=== PATIENT | male | born 1990 | race African-American/Black ===

== ENCOUNTER 2020-11-27 00:56 | Emergency (ER) | payer OTHER ==
[~2020-11-27] VITALS: Ht 167.6 cm; Wt 56.7 kg
--- NOTE | ~2020-11-27 | EMS ---
[address] [address] EMS Patient Care Report Name: ROLANDO GUTIERREZ Room #: DEP GERALDINE Chanel#: [id number] Admission: 11/27/20 Attend Phys: Discharge: 11/27/20 Date of : [birth year] Report #: [id number] THIS REPORT FOR: //name// Report Transmitted: 11/27/2020 14:37 EMS Care Summary [place], [place]/[facility] Incident [id number] @ 11/27/2020 00:18 Incident Location [address] [place] [address] Patient ROLANDO GUTIERREZ Male, 30 Years 1990 Patient Address [address] [place] [address] Patient History None Reported, Patient Allergies No known allergies, Patient Medications Naproxen, Hydromorphone, Cyclobenzaprine, Chief Complaint Vomiting Disposition Transported No Lights/[place] Dispatch Reason Sick Person Transported To [facility] Narrative M41 RESPONDED TO A RESIDENCE ON A BACK PAIN/VOMITING. 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 PATIENT STATES PAIN IS 10/10. PATIENT STATES IT FLARED UP ABOUT 20 MINUTES PRIOR TO EMS ARRIVAL. [address] [address] EMS Patient Care Report Name: ROLANDO GUTIERREZ Room #: DEP ER Rodrigo#: [id number] Admission: 11/27/20 Attend Phys: Discharge: 11/27/20 Date of : [birth year] Report #: [id number] UPON EMS ARRIVAL PATIENT IS FOUND WALKING OUT OF RESIDENCE. WITH P42 CREW. PATIENT WALKS TO COT AND IS BUCKLED IN WITH SEAT BELTS. 2 SETS OF VITALS OBTAINED EN ROUTE. NO SIGNIFICICANT CHANGES. PATIENT TRANSFERRED SELF FROM COT TO HOSPITAL BED. REPORT GIVEN TO RN. RN SIGNATURE OBTAINED. Initial Vitals @00:37P: 60,R: 16,BP: 115/70,Pain: 10/10,GCS: 15,SpO2: 100,Revised Trauma: 12, @00:42P: 55,R: 16,BP: 109/77,Pain: 10/10,GCS: 15,SpO2: 100,Revised Trauma: 12, Assessments @00:32MENTAL:Person Oriented,Time Oriented,Event Oriented,Place Oriented,SKIN:HEENT:Head/Face: No Abnormalities,Neck/Airway: No Abnormalities,LUNG SOUNDS:General: No Abnormalities,ABDOMEN:General: No Abnormalities,PELVIS//GI:No Abnormalities,EXTREMITIES:Left Arm: No Abnormalities,Right Arm: No Abnormalities,Left Leg: No Abnormalities,Right Leg: No Abnormalities,PULSE:NEURO:No Abnormalities, Impression Vomiting Procedures @00:32ALS AssessmentResponse: UnchangedSucceeded Timeline 00:16,Call Received 00:16,Dispatch Notified 00:18,Dispatched 00:20,En Route 00:31,On Scene 00:32,At Patient 00:32,ALS Assessment,Response: UnchangedSucceeded, 00:36,Depart Scene 00:37,BP: 115/70 M,PULSE: 60,RR: 16 R,SPO2: 100 Ox,ETCO2: ,BG: ,PAIN: 10,GCS: 15, 00:42,BP: 109/77 M,PULSE: 55,RR: 16 R,SPO2: 100 Ox,ETCO2: ,BG: ,PAIN: 10,GCS: 15, 00:52,At Destination 01:08,Call Closed Disclaimer v1.1 Copyright 2020 [employer] This EMS Care Summary contains data elements from the applicable legal record (which may be displayed differently). It is designed to provide pertinent information for the following purposes: continuity of care, clinical quality, and state data reporting. The complete legal record is available to ED staff and administrators of the receiving hospital in [employer]'s Patient Tracker. All data [address] [address] EMS Patient Care Report Name: ROLANDO GUTIERREZ Room #: RONAN Chanel#: [id number] Admission: 11/27/20 Attend Phys: Discharge: 11/27/20 Date of : [birth year] Report #: [id number] is provided "as is."
[2020-11-27] MEDS ORDERED: NAPROXEN500 MG PO (01:03)
[2020-11-27] MEDS ORDERED: FLEXERIL PO ×2 (01:03→02:23)
[2020-11-27] MEDS ORDERED: DILAUDID2 MG PO (01:04)
[2020-11-27 01:32] LABS: ABSOLUTE NEUTROPHILS 6.3 thou/uL (1.4-8.2); BASOPHILS 0.9 % (0.0-2.0); EOSINOPHILS 1.6 % (0.0-3.0); HEMOGLOBIN 14.8 gm/dL (14.0-18.0); LYMPHOCYTES 22.8 % (24.0-44.0); MCH 31.2 pg (26.0-34.0); MCHC 33.6 g/dL (28.0-37.0); MONOCYTES 10.2 % (1.0-8.0); PLATELET COUNT 162 thou/uL (150-400); POLYS 64.5 % (36.0-66.0); RBC 4.74 mil/uL (4.50-6.00); WBC 9.7 thou/uL (4.0-11.0)
[2020-11-27 01:39] LABS: CALCIUM 9.3 mg/dL (8.5-10.1); POTASSIUM 3.6 mmol/L (3.5-5.1)
[2020-11-27 01:45] LABS: ALBUMIN 4.6 g/dL (3.4-5.0); TOTAL BILIRUBIN 0.5 mg/dL (0.2-1.0); TOTAL PROTEIN 7.5 g/dL (6.4-8.2)
[2020-11-27 02:06] LABS: URINE BILIRUBIN 1+ (Negative); URINE BLOOD 1+ (Negative); URINE CLARITY CLEAR; URINE COLOR YELLOW; URINE GLUCOSE-RANDOM* NEGATIVE (Negative); URINE KETONES TRACE (Negative); URINE LEUKOCYTES-REFLEX NEGATIVE (Negative); URINE NITRITE-REFLEX NEGATIVE (Negative); URINE PROTEIN (DIPSTICK) 2+ (Negative); URINE SPECIFIC GRAVITY >= 1.030 (1.005-1.035)
[2020-11-27 02:14] LABS: SQUAMOUS 4-10 Moderate /LPF (0-3)
[2020-11-27 02:15] LABS: BACTERIA-REFLEX 1-9 Few /HPF (None Seen); CASTS None Seen /LPF (None Seen); CRYSTALS None Seen /LPF (None Seen); MUCUS >6 Heavy strn/LPF (None Seen); URINE RBC 3-10 Few /HPF (NONE SEEN); URINE WBC-REFLEX 6-15 Few /HPF (0-5); WBC CLUMPS Few (None Seen)
[2020-11-27] MEDS ORDERED: NAPROSYN500 MG PO (02:23)
[2020-11-27] MEDS ORDERED: DOXYCYCLINE 10100 M2 PO (02:25)
[2020-11-27 02:36] VITALS: BP 103/59
== END 2020-11-27 02:50 | disposition home or self-care (01) ==
LOC: ER 00:56
PROVIDERS: Emergency Medicine
DX: N39.0 Urinary tract infection, site not specified (principal); R10.32 Left lower quadrant pain; F17.210 Nicotine dependence, cigarettes, uncomplicated